=== PATIENT | male | born 1965 | race Caucasian/White ===

== ENCOUNTER 2017-04-03 10:39 | Emergency (ER) | payer OTHER ==
[2017-04-03] MEDS ORDERED: KETOROLAC TROMETHAMINE 30 MG/ML SOL IV ONE (11:14)
[2017-04-03] MEDS ORDERED: SOLUMEDROL 125 MG/2 ML 125 MG/2 ML PDS IV ONE (11:14)
[2017-04-03] MEDS ORDERED: SODIUM CHLORIDE 0.9% FLUSH 10 ML SOL IV PRN (11:14)
[2017-04-03] MEDS ORDERED: SOLUMEDROL 125 MG/2 ML 125 MG/2 ML PDS ONE (11:17)
[2017-04-03] MEDS ORDERED: KETOROLAC TROMETHAMINE 30 MG/ML SOL ONE (11:17)
[2017-04-03 13:12] VITALS: RESP 18; TEMP 98.8; O2SAT 97
[2017-04-03] MEDS ORDERED: MORPHINE SULFATE 10 MG/ML SOL ONE (13:50)
[2017-04-03] MEDS ORDERED: MORPHINE SULFATE 10 MG/ML SOL IV ONE (13:51)
[2017-04-03 13:56] VITALS: BP 105/43; PULSE 80
[2017-04-03] MEDS ORDERED: ONDANSETRON 4 MG ODT BU ONE (14:18)
[2017-04-03] MEDS ORDERED: ONDANSETRON 4 MG ODT ONE (14:19)
== END 2017-04-03 14:25 | disposition home or self-care (01) | DRG 552 ==
LOC: ED 10:39
DX: M54.42 Lumbago with sciatica, left side (principal); G89.29 Other chronic pain
CPT/HCPCS: 72148; 99285; J1885; J2270; J2930